=== PATIENT | female | born 2000 | race Asian ===

== ENCOUNTER 2018-05-23 23:00 | Emergency (ER) | payer OTHER, MEDICAID ==
[2018-05-23 23:10] VITALS: BP 124/91
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
[2018-05-24] MEDS ORDERED: IBUPROFEN 600 MG TAB PO ONE (00:06)
== END 2018-05-24 00:22 | disposition home or self-care (01) ==
DX: S43.401A Unspecified sprain of right shoulder joint, initial encounter (principal); S16.1XXA Strain of muscle, fascia and tendon at neck level, initial encounter; V43.52XA Car driver injured in collision with other type car in traffic accident, initial encounter; Y92.410 Unspecified street and highway as the place of occurrence of the external cause; Y99.8 Other external cause status

== ENCOUNTER 2018-10-13 07:06 | Inpatient (IN) | payer MEDICAID ==
[2018-10-13] MEDS ORDERED: NS 1,000 ML IV ONE ×2 (07:15→08:52)
--- NOTE | 2018-10-13 07:19 | EDPHY ---
H & P Time Seen by Provider: 10/13/18 07:11 HPI/ROS: CHIEF COMPLAINT: Ibuprofen overdose HISTORY OF PRESENT ILLNESS: Patient is a 18-year-old female student with history of depression who reports that she overdosed on ibuprofen last night. She began taking ibuprofen around 9:00 p.m. And finished around midnight. She woke up this morning called 911. She had a new bottle of ibuprofen and states that she took about half of them. We are currently counting the pills. She is currently asymptomatic. She states that she did this in an attempt to kill herself. She denies, ingestants. Severity: Moderate Modifying factors: None REVIEW OF SYSTEMS: Constitutional: denies: chills, fever, recent illness, recent injury EENTM: denies: blurred vision, double vision, nose congestion Respiratory: denies: cough, shortness of breath Cardiac: denies: chest pain, irregular heart rate, lightheadedness, palpitations Gastrointestinal/Abdominal: denies: abdominal pain, diarrhea, nausea, vomiting, blood streaked stools Genitourinary: denies: dysuria, frequency, hematuria, pain Musculoskeletal: denies: joint pain, muscle pain Skin: denies: lesions, rash, jaundice, bruising Neurological: denies: headache, numbness, paresthesia, tingling, dizziness, weakness Hematologic/Lymphatic: denies: blood clots, easy bleeding, easy bruising Immunologic/allergic: denies: HIV/AIDS, transplant 10 systems reviewed and negative except as noted EXAM: GENERAL: Well-appearing, well-nourished and in no acute distress. HEAD: Atraumatic, normocephalic. EYES: Pupils equal round and reactive to light, extraocular movements intact, sclera anicteric, conjunctiva are normal. ENT: TMs normal, nares patent, oropharynx clear without exudates. Moist mucous membranes. NECK: Normal range of motion, supple without lymphadenopathy or JVD. LUNGS: Breath sounds clear to auscultation bilaterally and equal. No wheezes rales or rhonchi. HEART: Regular rate and rhythm without murmurs, rubs or gallops. ABDOMEN: Soft, nontender, normoactive bowel sounds. No guarding, no rebound. No masses appreciated. BACK: No CVA tenderness, no spinal tenderness, step-offs or deformities EXTREMITIES: Normal range of motion, no pitting or edema. No clubbing or cyanosis. NEUROLOGICAL: Cranial nerves II through XII grossly intact. Normal speech, normal gait. 5/5 strength, normal movement in all extremities, normal sensation , normal reflexes PSYCH: Normal mood, normal affect. SKIN: Warm, dry, normal turgor, no visible rashes or lesions. Source: Patient, EMS Exam Limitations: No limitations - Medical/Surgical History Hx Asthma: No Hx Chronic Respiratory Disease: No Hx Diabetes: No Hx Cardiac Disease: No Hx Renal Disease: No Hx Cirrhosis: No Hx Alcoholism: No Hx HIV/AIDS: No Hx Splenectomy or Spleen Trauma: No Other PMH: none - Family History Significant Family History: No pertinent family hx - Social History Smoking Status: Never smoked Alcohol Use: Sober Drug Use: None Constitutional: Initial Vital Signs Temperature (C) 36.4 C 10/13/18 07:18 Heart Rate 118 H 10/13/18 07:18 Respiratory Rate 18 10/13/18 07:18 Blood Pressure 102/83 H 10/13/18 07:18 O2 Sat (%) 94 10/13/18 07:18 O2 Delivery Mode Room Air Allergies/Adverse Reactions: amoxicillin Allergy (Verified 05/23/18 23:10) Penicillins Allergy (Verified 05/23/18 23:10) Home Medications: Medication Instructions Recorded NK [No Known Home Meds] 05/23/18 Medical Decision Making - Diagnostics EKG Interpretation: An EKG obtained and was read and documented in trace view. Please see trace view for full reading and report. Sinus rhythm, no interval abnormalities. ED Course/Re-evaluation: 7:50 a.m. I spoke with poison Control case [id number]. We have counted the remaining pills in the bottle and there are 223 missing which would be ingestion of 44,600 mg last night. This is about 620 milligrams/kilogram which is over the 400 milligrams/kilogram toxic dose. The patient is slightly acidotic. She is slightly sleepy but is not showing other symptoms. No abdominal pain or bleeding or vomiting. No renal failure at this point. Will admit for hydration and supportive care. Seizure precautions. Benzos if she has seizures. 8:00 a.[address]. discussed the case Dr. Sarah Dela Cruz who will admit to the ICU. Differential Diagnosis: Partial list of the Differential diagnosis considered include but were not limited to; suicidality, overdose and although unlikely based on the history and physical exam, I also considered head injury, infection, . Critical Care Time: Critical care time spent by me, Dr. Crawley exclusive with this patient was 45 minutes, exclusive of the PA time exclusive of procedures. The organ system that was at risk was cardiovascular and GI and I gave IV fluids, consultation and admission to prevent worsening of the patient's condition - Data Points Laboratory Results: Laboratory Results 10/13/18 07:18 10/13/18 07:18 10/13/18 10/13/18 10/13/18 07:22 07:19 07:18 WBC RBC Hgb Hct MCV MCH MCHC RDW Plt Count MPV Neut % (Auto) Lymph % (Auto) Zapata % (Auto) Eos % (Auto) Baso % (Auto) Nucleat RBC Rel Count Absolute Neuts (auto) Absolute Lymphs (auto) Absolute Monos (auto) Absolute Eos (auto) Absolute Basos (auto) Absolute Nucleated RBC Immature Gran % Immature Gran # PT 14.2 SEC SEC (12.0-15.0) INR 1.08 (0.83-1.16) APTT 27.9 SEC SEC (23.0-38.0) Puncture Site VENOUS Patient Temperature 37.0 DEGREES DEGREES VBG pH 7.28 L (7.31-7.42) VBG HCO3 18 mEQ/L L mEQ/L (22-26) VBG Total CO2 20 mEq/L L mEq/L (21-27) VBG O2 Saturation 79 % H % (65-75) VBG Base Excess -7.7 mEq/L L mEq/L (-2.5-2.5) Mixed VBG pCO2 40 mmHg mmHg (40-44) Mixed VBG pO2 50 mmHG H mmHG (35-40) Sodium Potassium Chloride Carbon Dioxide Anion Gap BUN Creatinine Estimated GFR Glucose Calcium Total Bilirubin Conjugated Bilirubin Unconjugated Bilirubin AST ALT Alkaline Phosphatase Total Protein Albumin TSH Beta HCG, Qual NEGATIVE Salicylates Acetaminophen Ethyl Alcohol 10/13/18 10/13/18 07:18 07:18 WBC 14.50 10^3/uL H 10^3/uL (3.80-9.50) RBC 4.89 10^6/uL 10^6/uL (4.18-5.33) Hgb 15.8 g/dL g/dL (12.6-16.3) Hct 45.2 % % (38.0-47.0) MCV 92.4 fL fL (81.5-99.8) MCH 32.3 pg pg (27.9-34.1) MCHC 35.0 g/dL g/dL (32.4-36.7) RDW 12.1 % % (11.5-15.2) Plt Count 230 10^3/uL 10^3/uL (150-400) MPV 9.1 fL fL (8.7-11.7) Neut % (Auto) 85.2 % H % (39.3-74.2) Lymph % (Auto) 11.1 % L % (15.0-45.0) Zapata % (Auto) 3.1 % L % (4.5-13.0) Eos % (Auto) 0.1 % L % (0.6-7.6) Baso % (Auto) 0.2 % L % (0.3-1.7) Nucleat RBC Rel Count 0.0 % % (0.0-0.2) Absolute Neuts (auto) 12.36 10^3/uL H 10^3/uL (1.70-6.50) Absolute Lymphs (auto) 1.61 10^3/uL 10^3/uL (1.00-3.00) Absolute Monos (auto) 0.45 10^3/uL 10^3/uL (0.30-0.80) Absolute Eos (auto) 0.01 10^3/uL L 10^3/uL (0.03-0.40) Absolute Basos (auto) 0.03 10^3/uL 10^3/uL (0.02-0.10) Absolute Nucleated RBC 0.00 10^3/uL 10^3/uL (0-0.01) Immature Gran % 0.3 % % (0.0-1.1) Immature Gran # 0.04 10^3/uL 10^3/uL (0.00-0.10) PT INR APTT Puncture Site Patient Temperature VBG pH VBG HCO3 VBG Total CO2 VBG O2 Saturation VBG Base Excess Mixed VBG pCO2 Mixed VBG pO2 Sodium 140 mEq/L mEq/L (135-145) Potassium 4.7 mEq/L mEq/L (3.5-5.2) Chloride 104 mEq/L mEq/L (97-110) Carbon Dioxide 18 mEq/l L mEq/l (22-31) Anion Gap 18 mEq/L H mEq/L (6-14) BUN 14 mg/dL mg/dL (7-23) Creatinine 1.0 mg/dL mg/dL (0.6-1.0) Estimated GFR > 60 Glucose 88 mg/dL mg/dL (70-100) Calcium 9.7 mg/dL mg/dL (8.5-10.4) Total Bilirubin 0.8 mg/dL mg/dL (0.1-1.4) Conjugated Bilirubin 0.4 mg/dL mg/dL (0.0-0.5) Unconjugated Bilirubin 0.4 mg/dL mg/dL (0.0-1.1) AST 39 IU/L IU/L (14-46) ALT 64 IU/L H IU/L (9-52) Alkaline Phosphatase 101 IU/L IU/L (38-126) Total Protein 9.6 g/dL H g/dL (6.3-8.2) Albumin 4.9 g/dL g/dL (3.5-5.0) TSH 1.770 uIU/mL uIU/mL (0.465-4.680) Beta HCG, Qual Salicylates < 1.0 mg/dL L mg/dL (2.0-20.0) Acetaminophen < 10 mcg/mL L mcg/mL (10-30) Ethyl Alcohol < 10 mg/dL mg/dL (0-10) Medications Given: Sodium Chloride (Ns) 1,000 mls @ 150 mls/hr IV CONT NORM Stop: 04/11/19 08:14 Last Admin: 10/13/18 10:53 Dose: 1,000 mls Discontinued Medications Sodium Chloride (Ns) 1,000 mls @ 0 mls/hr IV EDNOW ONE; Wide Open PRN Reason: Protocol Stop: 10/13/18 07:16 Last Admin: 10/13/18 07:32 Dose: 1,000 mls Sodium Chloride (Ns) 1,000 mls @ 0 mls/hr IV EDNOW ONE; Wide Open PRN Reason: Protocol Stop: 10/13/18 08:53 Last Admin: 10/13/18 08:53 Dose: 1,000 mls Ondansetron HCl (Zofran) 4 mg IVP EDNOW ONE Stop: 10/13/18 07:34 Last Admin: 10/13/18 07:34 Dose: 4 mg Departure - Departure Disposition: [facility] Clinical Impression: Suicidal ideation Ibuprofen overdose Qualifiers: Encounter type: initial encounter Injury intent: intentional self-harm Qualified Code(s): T39.312A - Poisoning by propionic acid derivatives, intentional self-harm, initial encounter Condition: Fair
[2018-10-13] MEDS ORDERED: ONDANSETRON 4 MG/2 ML VIAL ONE (07:30)
[2018-10-13 07:31] LABS: PLATELET COUNT 230 10^3/uL (150-400)
[2018-10-13] MEDS ORDERED: ONDANSETRON 4 MG/2 ML VIAL IVP ONE (07:33)
[2018-10-13 07:37] LABS: INR 1.08 (0.83-1.16); PROTIME(PATIENT) 14.2 SEC (12.0-15.0)
--- NOTE | 2018-10-13 07:45 | CPEKG ---
Test Reason : OPEN Blood Pressure : / mmHG Vent. Rate : 101 BPM Atrial Rate : 101 BPM P-R Int : 132 ms QRS Dur : 104 ms QT Int : 351 ms P-R-T Axes : 039 094 005 degrees QTc Int : 455 ms Sinus tachycardia Consider right ventricular hypertrophy Confirmed by Mando Crawley ([id number]) on 10/13/2018 7:44:27 AM Referred By: Mando Crawley Confirmed By:Mando Crawley
[2018-10-13] MEDS ORDERED: ACETAMINOPHEN 325 MG TAB PO PRN (08:09)
[2018-10-13] MEDS ORDERED: ONDANSETRON 4 MG/2 ML VIAL IVP PRN (08:09)
[2018-10-13] MEDS ORDERED: ONDANSETRON DISINTEGRATING 4 MG TAB PO PRN (08:09)
[2018-10-13] MEDS: NS 1,000 ML IV SCH ×3 (10:53→23:41)
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
--- NOTE | 2018-10-13 18:17 | PDMN ---
Medical Necessity Medical necessity: [facility] M153 Drug Ingestion or Overdose, A-1 day: 18 yo w/ intentional OD ibuprofen, on IVF and seizure precautions, M1 hold, psych to consult once medically cleared. IP status in ICU for monitoring, tx and risk of harm to self.
[2018-10-14 05:21] LABS: INR 1.24 (0.83-1.16); PROTIME(PATIENT) 15.8 SEC (12.0-15.0)
[2018-10-14] MEDS: NS 1,000 ML IV SCH ×2 (06:30→07:07)
--- NOTE | 2018-10-14 14:42 | ASMTCMCOM ---
CM Note CM Note Notes: Pt is a 18 yo female prespetns after intentional overdose of ibprophen. TLC consult once medically cleared. Plan: Transfer to inpatient psych ([facility]). Date Signed: 10/14/2018 02:41 PM Electronically Signed By:MILES Najera
--- NOTE | 2018-10-14 16:14 | HOSPPROG ---
Hospitalist Progress Note Assessment/Plan: Ibuprofen overdose (Acute) - Intentional overdose on evening of 10/12 - Per ED, 223 pills missing from bottle, about 620 mg/kg which is over the 400 mg/kg toxic dose - Patient slightly acidotic on admission, VBG ph 7.28, Bicarb 18 - Spoke with Poison control (case [id number]) this afternoon, no further recommendations - Repeat BMP this afternoon shows improvement in Bicarb to 19 AG Metabolic Acidosis - AG 18, Bicarb 18 on admission - In setting of Ibuprofen overdose - S/p mIVF overnight - Repeat BMP as above Suicidal Ideation - Reports no formal hx of depression, has not been on antidepressant in the past - Currently on M1 Hold - Will consult Psychiatry this afternoon now that patient is medically cleared FEN: IVF, Regular Code: FULL DVT PPx: Low risk, SCDs Dispo: Currently on M1 Hold, TLC has been consulted, patient is medically cleared Subjective: Patient reports no complaints this afternoon Objective: Vital Signs Temp Pulse Resp BP Pulse Ox 36.8 C 93 16 110/66 96 10/14/18 07:25 10/14/18 13:36 10/14/18 13:36 10/14/18 13:36 10/14/18 13:36 Laboratory Results 10/14/18 05:00 10/14/18 15:25 10/13/18 10/14/18 10/15/18 05:59 05:59 05:59 Intake Total 4107 1735 Output Total 1600 Balance 2507 1735 PT 15.8 SEC (12.0-15.0) H 10/14/18 05:00 INR 1.24 (0.83-1.16) H 10/14/18 05:00 - Physical Exam Constitutional: no apparent distress Eyes: PERRL Ears, Nose, Mouth, Throat: moist mucous membranes Cardiovascular: regular rate and rhythym Respiratory: no respiratory distress Gastrointestinal: soft, non-tender abdomen Skin: warm Musculoskeletal: full muscle strength Neurologic: AAOx3 Psychiatric: interacting appropriately ICD10 Worksheet Patient Problems: Problems Problem Status Onset Ibuprofen overdose Acute Suicidal ideation Acute
[2018-10-14 18:20] VITALS: BP 121/70
--- NOTE | 2018-10-14 20:02 | ASMTTLCEVL ---
TLC Evaluation - Basic Information Evaluation Start Date and 10/14/2018 06:30 PM Time Hospital Status Answers: M1 Hold 72-hr M1 Hold Start Date 10/13/2018 06:31 AM and Time Patient statement Notes: "I attempted to kill myself - having lots of negative vibes - feeling overwhelmed - thought my parents would be better off not having to worry about me anymore." Narrative Notes: This 18 y/o -Citizen Of [place] female, a sophomore in college was brought to the ED by [place] Police and EMS. Upon arrival to her home pt reported to officer that she tried to kill herself by taking a whole bottle of Ibuprofen. She was vomiting and could not stand. She was evaluated in the Ed and then admitted to the ICU due to her overdose. She has now been medically cleared in the ICU and ready for psychiatric evaluation. Pt reports a longstanding history of depression and anxiety - since elementary school but has had no treatment as her family does not "believe in mental illness" so she kept her feelings to herself. She recently saw a counselor at [facility] as she was feeling depressed and overwhelmed. She mainly reports struggling academically for the past year - issues with her brother a college freshman with whom she lives off campus and joining and then leaving a "catholic cult" called "[employer]" which she found to be emotionally abusive rather than supportive. Pt is alert and cooperative. She currently denies suicidal ideation, urges or behaviors. She does feel depressed and regrets making the suicide attempt. She denies any previous parasuicidal/ homicidal ideation, urges or behaviors. She denies any history of A/V hallucinations or psychotic symptoms. Diagnosis History Notes: Pt has never been in treatment but likely suffers from a Depressive Disorder and Generalized Anxiey. Prior suicide attempts Notes: Pt reports 2 prior attempts - once in Middle School and once in via drowning. She never told anyone. Prior hospitalizations Notes: None reported. Treatment Responses Notes: Has seen a counselor at school a few times. History of violence Notes: None reported Medications (name, dosage, route, freq uency) Notes: None Allergies/Reaction Notes: Penicillin Sleep Notes: Has been sleeping a lot Appetite Notes: Increased appetite Medical/Surgical history Notes: Denies any medical condition or past surgery Substance use history (frequency, intensity, his tory, duration) Notes: Pt denies all substance use. Family composition Notes: Parents and 2 younger sibs live in [place], [place] pt and brother live in [place] to attend . Need for family Answers: Yes participation in patient's care Family psychiatric/substance abuse history Notes: Pt denies Developmental history Notes: Pt moved to [place] at age 8 from [place]. She did very well academically and socially - active in many extra curriculars. 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 [employer] Notes: NA Legal Notes: None reported Mandaeism/Spiritual Notes: No beliefs that would interfere with treatment Leisure Notes: Volleyball, hiking, painting Collateral Notes: Pt's chart Patient's strengths Answers: Artistic/Creative/Musical (Please select at least TWO strengths): Athletic Good Friend to Others Honest Intelligent Motivated for Treatment Responsible/Dependable Supportive Family Willingness TLC Evaluation - Mental Status Exam Appearance: Answers: Appropriate Clean Eye Contact: Answers: Intermittent Mood: Answers: Depressed Affect: Answers: Anxious Congruent w/ Mood Sad Behavior: Answers: Appropriate Cooperative Crying Speech: Answers: Relevant Logical Clear Coherent Thought Process: Answers: Organized Oriented Alert Insight: Answers: Fair Judgement: Answers: Poor Depression Answers: Crying Spells Signs/Symptoms: Difficulty Concentrating Sad Mood Anxiety Signs/Symptoms Answers: Generalized Anxiety Hallucinations: Answers: None Pt reported to have Answers: Yes suicidal/self-injuring ideation/behavior? Pt reported to be making Answers: No suicidal/self-injuring threats? Pt reported to have Answers: No aggression/assault ideation/behavior? Pt reported to be making Answers: No aggression/assault threats? Pt exhibits inability to Answers: No care for self/grave disability? Ideation has Answers: No delusional/hallucinatory content? History of Answers: Yes suicidal/self-injuring ideation, behavior, or threats? History of Answers: No aggressive/assaultive ideation, behavior, or threats? History of serious Answers: No physical harm to self/others while in treatment setting? TLC Evaluation - Suicide/Homicide Risk Suicide Risk Factors: Answers: Impulsivity Major Depression Homicide/violence risk Answers: None factors: Current Suicidal Answers: No Ideation? Current Suicidal Ideation Answers: Yes in the Past 48 Hours? Current Suicidal Answers: Yes Ideation, Worst Ever? Suicide Internal Answers: Absence of Psychosis Protective Factors: Frustration Tolerance Suicide External Answers: Social Support Protective Factors: Ranking of patient's Answers: Low suicidal risk: Ranking of patient's Answers: Low homicidal risk: TLC Evaluation - Wrap-up BDI Total Score: 36 BDI Question #2 Score: 0 BDI Question #9 Score: 2 BSS Total Score: 11 AXIS I Diagnosis (include DSM-V and ICD-10 codes), must also be entered in [employer], which is the source of truth. Notes: 296.32 (F33.1) Major Depressive Disorder, Recurrent, Moderate 300.02 (F41.1) Generalized Anxiety Disorder Evaluation End Date and 10/14/2018 08:00 PM Time (HH:TRISHA): Date Signed: 10/14/2018 08:01 PM Electronically Signed By:Viky Pavon
--- NOTE | 2018-10-14 20:24 | ASMTTCLDSP ---
TLC Discharge Disposition Disposition: Answers: Admit Disposition Notes: Notes: In consultation with ICU MD and sanitation worker hosing machinery psychiatrist, Daryl Rowe both concurred that pt appears to meet the 27-65 criteria requiring in-pt psychiatric hospitalization as pt appears to be a danger to self. Pt was read her Patient Rights and signed the document. For inpatient Daryl Rowe MD admission, the following psychiatrist agreed to accept patient for admission to [facility]): Type of Hold: Answers: M1/72-hour Hold Hold initiated by: Answers: Police Date Signed: 10/14/2018 08:24 PM Electronically Signed By:Viky Pavon
--- NOTE | 2018-10-15 11:22 | ASDISCHSUM ---
Discharge Information Plan Status:Psych Placement/Petitioned Medically Cleared to Leave: Discharge Date:10/14/2018 09:35 PM CM D/C Disposition: ADT D/C Disposition:[facility] Projected Discharge Date:10/14/2018 12:00 AM Transportation at D/C: Discharge Delay Reason: Follow-Up Date:10/14/2018 12:00 AM Discharge Slot: Final Diagnosis: Placement Information Patient Contact Information Contact Name:RODRIGUEZ Relationship:Father Address:[address] Work Phone: City:[place] Alternate Phone: [facility]/Zip Code:[place] [address] Email: Financial Information Financial Class:Medicaid Primary Plan Desc:MEDICA[employer] Primary Plan Number:[id number] Secondary Plan Desc: Secondary Plan Number: Assessment Information [facility] CM Progress Note CM Note CM Note Notes: Pt is a 18 yo female prespetns after intentional overdose of ibprophen. TLC consult once medically cleared. Plan: Transfer [facility] inpatient [facility]. Date Signed: 10/14/2018 02:41 PM Electronically Signed By:MILES Najera TLC Evaluation TLC Evaluation - Basic Information Evaluation Start Date and 10/14/2018 06:30 PM Time Hospital Status Answers: M1 Hold 72-hr M1 Hold Start Date 10/13/2018 06:31 AM and Time Patient statement Notes: "I attempted to kill myself - having lots of negative vibes - feeling overwhelmed - thought my parents would be better off not having to worry about me anymore." Narrative Notes: This 18 y/o -[place] female, a sophomore in college was brought to the ED by [place] Police and EMS. Upon arrival to her home pt reported to officer that she tried to kill herself by taking a whole bottle of Ibuprofen. She was vomiting and could not stand. She was evaluated in the Ed and then admitted to the ICU due to her overdose. She has now been medically cleared in the ICU and ready for psychiatric evaluation. Pt reports a longstanding history of depression and anxiety - since elementary school but has had no treatment as her family does not "believe in mental illness" so she kept her feelings to herself. She recently saw a counselor at [facility] as she was feeling depressed and overwhelmed. She mainly reports struggling academically for the past year - issues with her brother a college freshman with whom she lives off campus and joining and then leaving a "druze cult" called "[employer]" which she found to be emotionally abusive rather than supportive. Pt is alert and cooperative. She currently denies suicidal ideation, urges or behaviors. She does feel depressed and regrets making the suicide attempt. She denies any previous parasuicidal/ homicidal ideation, urges or behaviors. She denies any history of A/V hallucinations or psychotic symptoms. Diagnosis History Notes: Pt has never been in treatment but likely suffers from a Depressive Disorder and Generalized Anxiey. Prior suicide attempts Notes: Pt reports 2 prior attempts - once in Middle School and once in via drowning. She never told anyone. Prior hospitalizations Notes: None reported. Treatment Responses Notes: Has seen a counselor at school a few times. History of violence Notes: None reported Medications (name, dosage, route, freq uency) Notes: None Allergies/Reaction Notes: Penicillin Sleep Notes: Has been sleeping a lot Appetite Notes: Increased appetite Medical/Surgical history Notes: Denies any medical condition or past surgery Substance use history (frequency, intensity, his tory, duration) Notes: Pt denies all substance use. Family composition Notes: Parents and 2 younger sibs live in [place], [place] pt and brother live in [place] to attend . Need for family Answers: Yes participation in patient's care Family psychiatric/substance abuse history Notes: Pt denies Developmental history Notes: Pt moved to [place] at age 8 from [place]. She did very well academically and socially - active in many extra curriculars. 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 [employer] Notes: NA Legal Notes: None reported Anabaptist/Spiritual Notes: No beliefs that would interfere with treatment Leisure Notes: Volleyball, hiking, painting Collateral Notes: Pt's chart Patient's strengths Answers: Artistic/Creative/Musical (Please select at least TWO strengths): Athletic Good Friend to Others Honest Intelligent Motivated for Treatment Responsible/Dependable Supportive Family Willingness [facility] Evaluation - Mental Status Exam Appearance: Answers: Appropriate Clean Eye Contact: Answers: Intermittent Mood: Answers: Depressed Affect: Answers: Anxious Congruent w/ Mood Sad Behavior: Answers: Appropriate Cooperative Crying Speech: Answers: Relevant Logical Clear Coherent Thought Process: Answers: Organized Oriented Alert Insight: Answers: Fair Judgement: Answers: Poor Depression Answers: Crying Spells Signs/Symptoms: Difficulty Concentrating Sad Mood Anxiety Signs/Symptoms Answers: Generalized Anxiety Hallucinations: Answers: None Pt reported to have Answers: Yes suicidal/self-injuring ideation/behavior? Pt reported to be making Answers: No suicidal/self-injuring threats? Pt reported to have Answers: No aggression/assault ideation/behavior? Pt reported to be making Answers: No aggression/assault threats? Pt exhibits inability to Answers: No care for self/grave disability? Ideation has Answers: No delusional/hallucinatory content? History of Answers: Yes suicidal/self-injuring ideation, behavior, or threats? History of Answers: No aggressive/assaultive ideation, behavior, or threats? History of serious Answers: No physical harm to self/others while in treatment setting? [facility] Evaluation - Suicide/Homicide Risk Suicide Risk Factors: Answers: Impulsivity Major Depression Homicide/violence risk Answers: None factors: Current Suicidal Answers: No Ideation? Current Suicidal Ideation Answers: Yes in the Past 48 Hours? Current Suicidal Answers: Yes Ideation, Worst Ever? Suicide Internal Answers: Absence of Psychosis Protective Factors: Frustration Tolerance Suicide External Answers: Social Support Protective Factors: Ranking of patient's Answers: Low suicidal risk: Ranking of patient's Answers: Low homicidal risk: TLC Evaluation - Wrap-up BDI Total Score: 36 BDI Question #2 Score: 0 BDI Question #9 Score: 2 BSS Total Score: 11 AXIS I Diagnosis (include DSM-V and ICD-10 codes), must also be entered in [employer], which is the source of truth. Notes: 296.32 (F33.1) Major Depressive Disorder, Recurrent, Moderate 300.02 (F41.1) Generalized Anxiety Disorder Evaluation End Date and 10/14/2018 08:00 PM Time (:MM): Date Signed: 10/14/2018 08:01 PM Electronically Signed By:Viky Pavon TLC Discharge Disposition TLC Discharge Disposition Disposition: Answers: Admit Disposition Notes: Notes: In consultation with ICU MD and information clerk cashier psychiatrist, Daryl Rowe both concurred that pt appears to meet the 27-65 criteria requiring in-pt psychiatric hospitalization as pt appears to be a danger to self. Pt was read her Patient Rights and signed the document. For inpatient Daryl Rowe MD admission, the following psychiatrist agreed to accept patient for admission to [facility] ([facility]): Type of Hold: Answers: M1/72-hour Hold Hold initiated by: Answers: Police Date Signed: 10/14/2018 08:24 PM Electronically Signed By:Viky Pavon Intervention Information
--- NOTE | 2018-10-15 11:23 | ASMTDCNOTE ---
Case Management Discharge Discharge Order Complete? Answers: Yes Transportation Arranged Answers: [facility] Case Management Transport Answers: Yes Notes: Completed PCS, provided Form Complete to toy painter Faxed Final Orders Answers: Yes Agency/Facility Transfer Answers: Yes Report Printed & Faxed to Receiving Agency Discharge Comments Notes: Pt discharged to inpatient behavioral health. Date Signed: 10/15/2018 11:22 AM Electronically Signed By:MILES Najera
--- NOTE | 2018-10-15 16:48 | PDDCSUM ---
Discharge Summary Discharge Summary: Date of Admission: 10/13/2018 Date of Discharge: 10/14/2018 Consults: TLC Followup: IP Psychiatry Hospital Course Problem List: Ibuprofen overdose (Acute) - Intentional overdose on evening of 10/12 - Per ED, 223 pills missing from bottle, about 620 mg/kg which is over the 400 mg/kg toxic dose - Patient slightly acidotic on admission, VBG ph 7.28, Bicarb 18 - Spoke with Poison control (case [id number]) on 10/14, no further recommendations - Repeat BMP prior to discharge shows improvement in Bicarb to 19 AG Metabolic Acidosis - AG 18, Bicarb 18 on admission - In setting of Ibuprofen overdose - S/p mIVF overnight - Repeat BMP as above Suicidal Ideation - Reports no formal hx of depression, has not been on antidepressant in the past - Currently on M1 Hold - Transferred to IP Psych Time spent on discharge was >35 minutes with >50% of time spent on patient counseling and education
== END 2018-10-14 21:35 | DRG 812 ==
LOC: EDUNIT# → EEVIPCON 07:59 → F2N 09:45 → OBSVTOIN 17:09
PROVIDERS: ADMIT Internal Medicine; ATTEND Internal Medicine
DX: T39.312A Poisoning by propionic acid derivatives, intentional self-harm, initial encounter (principal); E87.2 Acidosis; R45.851 Suicidal ideations; Z23 Encounter for immunization
CPT/HCPCS: 80305; 96374; G0008; G0480; J2405

== ENCOUNTER 2018-10-14 22:00 | Inpatient (IN) | payer MEDICAID ==
[2018-10-14] MEDS ORDERED: OLANZapine DISINTEGR 10 MG TAB PO PRN (22:44)
[2018-10-14] MEDS ORDERED: MAGNESIUM HYDROXIDE 30 ML UDCUP PO PRN (22:44)
[2018-10-14] MEDS ORDERED: LORazepam 0.5 MG TAB PO PRN (22:44)
[2018-10-14] MEDS ORDERED: MAG HYDROX/AL HYDROX/SIMETH 30 ML UDCUP PO PRN (22:44)
[2018-10-14] MEDS ORDERED: ACETAMINOPHEN 325 MG TAB PO PRN (22:44)
[2018-10-14] MEDS ORDERED: NICOTINE POLACRILEX 2 MG GUM B PRN (22:44)
--- NOTE | 2018-10-15 08:00 | ASMTBHMTP ---
Master Treatment Plan Master Treatment Plan Answers: Depressed Mood with for: Suicidal Ideation Date: 10/14/2018 Diagnosis on Admission: Major Depressive Disorder, Recurrent, Moderate Expected length of stay: 3-5 days Reason for admission: Notes: Matt is a 18 yoa, a sophomore in college (at [employer]) was brought to the ED by [place] and EMS. Upon arrival to her home pt reported to officer that she tried to kill herself by taking a whole bottle of Ibuprofen. She recently saw a counselor at [facility] as he was feeling depressed and overwhelmed. She reports struggling academically for the past year; additionally, she reports leaving a "yazidi cult," called the "[employer]," which was emotionally abusive rather than supportive. Patient's stated presenting problems: Notes: self-harming & depression Patient's goals for treatment: Notes: to use my coping skills Patient's strengths: Notes: none Identify supports outside of hospital: Notes: family and friends, school Discharge criteria: Notes: Suicidal Ideation will resolve and patient will have a plan to safely manage recurrent suicidal ideation. Initial disposition plan/considerations: Notes: Return home with my parents. Master Treatment Plan Required Signatures Psychiatrist signature: Answers: Psychiatrist: RN on-shift signature: Answers: RN: Patient signature: Answers: Patient: Date Signed: 10/15/2018 07:59 AM Electronically Signed By:Darell New
[2018-10-15] MEDS: SERTRALINE HCL 50 MG TAB PO SCH (09:40)
--- NOTE | 2018-10-15 13:12 | BAPA ---
[f rep st] ADMISSION PSYCHIATRIC ASSESSMENT DATE OF SERVICE: 10/15/2018 CHIEF COMPLAINT: "Tried to kill myself Rivera evening." HISTORY OF PRESENT ILLNESS: From the ED note, dated 10/13/2018, patient with a history of depression reported overdose of ibuprofen last night, 10/12/2018. Patient reported she began taking ibuprofen around 9 p.m. and finished around midnight. The patient reported she woke up the morning of 10/13/2018, and called 911. The patient reported she had a new bottle of ibuprofen and reported taking half of the bottle. At time of presenting to the emergency department, the patient was asymptomatic. The patient reported she did ingest the ibuprofen in an attempt to kill herself. From the [facility]LC evaluation, dated 10/14/2018, patient was placed on a 72-hour M1 hold with start date and time of 10/13/2018 at 6:30 a.m. Patient reported to the [facility] air traffic control supervisor, "I attempted to kill myself. Having lots of negative vibes, feeling overwhelmed. I thought my parents would be better off not having to worry about me anymore." The patient was admitted involuntarily on an M1 hold due to being a danger to herself and is hospitalized for safety, crisis stabilization and medication evaluation. The patient reports reason for overdose is no longer wanting to live. The patient reports history of depression since middle school. The patient reports increased stressors, including arguing with her brother and reports arguing with her brother Rivera night prior to her overdose and suicide attempt. The patient reports additional stressor including recently finding out she was part of a advent cult and is also feeling overwhelmed with school and a full-time job. The patient reports she is no longer a part of the advent cult, and she has left the advent cult. The patient reports current depression symptoms as depressed mood nearly every day, all day; poor appetite. The patient reports hypersomnia and, at times, insomnia. The patient reports fatigue and lack of energy, feelings of worthlessness and recent suicidal ideation with suicide attempt. The patient reports anxiety symptoms also accompany depression including, at times, finding it difficult to control her worry, feels restless and keyed up at times and also sleep disturbance. The patient reports no history of abuse. The patient denies other psychiatric symptoms, including symptoms of phillip, ADHD, OCD, PTSD, psychosis, and any other symptom of psychiatric disorder. The patient describes psychiatric symptoms are impacting managing her day-to-day life, described as attending to household responsibilities without difficulty. The patient reports she is currently working a full-time job without difficulty. The patient reports she is beginning to reconnect with friends now that she is no longer involved with the advent cult. The patient reports family relationships are going well, except the relationship with her brother, whom she resides with. With regard to school, patient reports there is improvement needed and reports she has refocused on her school work and is making improvements. Patient reports hobbies as playing volleyball and playing guitar. The patient denies current suicidal ideation and reports this suicide attempt was a wake-up call for her and now she realizes the amount of support she has with family and friends. The patient reports protective factors or reasons to live as family, friends and her future. The patient denies current homicidal ideation and denies current self-injurious ideation. The patient reports she recently started seeing a therapist at , and started seeing this therapist this semester. PAST PSYCHIATRIC HISTORY: Patient reports no past history of psychotropic medication trials. No past history of inpatient psychiatric hospitalizations. The patient denies any history of withdrawal from drugs or alcohol. Reports no past suicide attempts. The patient reports no past history of self-injurious behavior. ALLERGIES: 1. Amoxicillin. 2. Penicillins. CURRENT MEDICATIONS: 1. Tylenol 650 mg p.o. q.4 hours p.r.n. 2. Maalox syrup 30 mL p.o. q.6 hours p.r.n. 3. Milk of magnesia 30 mL p.o. daily p.r.n. 4. Zoloft 50 mg p.o. daily. PAST MEDICAL HISTORY: The patient reports she has no reason to believe she could be . Urine test at time of admission was negative. The patient reports no history of major illnesses or major hospitalizations. SOCIAL HISTORY: The patient reports she was born in [place], [place], and then moved to [place], [place]. The patient reports she currently lives in [place], [place], and attends [employer]. The patient reports meeting all her developmental milestones. Reports no history of learning delays or difficulties. Patient describes her sexual orientation as heterosexual. Reports she is currently not sexually active. The patient reports no history of marriage, no children. The patient reports she currently works full-time at a [employer]. 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 The patient reports no history of duty and reports no current congregational or spiritual practice. The patient reports no history of or current legal charges. SUBSTANCE USE HISTORY: The patient reports she uses no substances and does not drink alcohol or use nicotine. FAMILY PSYCHIATRIC HISTORY: The patient reports no family history of mental illness, no family history of suicide and no family history of substance use. ADMISSION LABS/STUDIES: 1. CBC within normal limits, except red blood cells were low at 3.82, hemoglobin was low at 12.0, hematocrit was low at 35.9, neutrophils were elevated at 85.2, lymphocytes were low at 11.1, monocytes low at 3.1, eosinophils low at 0.1, basophils low at 0.2, absolute neutrophils were elevated at 12.36, absolute eosinophils were low at 0.01. 2. Coagulation. PT was elevated at 15.8. INR was elevated at 1.24. APTT was normal at 27.9. 3. Blood gas. VBG pH was low at 7.30. VBG HCO3 was low at 17. VBG total CO2 was low at 18. VBG O2 saturation was elevated at 94. VBG base excess was low at -8.4. Mixed VBG pCO2 was low at 36. Mixed VBG pO2 was elevated at 76. 4. BMP within normal limits except chloride was elevated at 114. Carbon dioxide was low at 19. 5. Calcium was low at 8.1. 6. Liver function within normal limits, except albumin was low at 3.4. 7. TSH was within normal limits at 1.770. 8. Beta HCG qualitative test was negative. 9. Toxicology screen was negative for all substances screened and negative for ethyl alcohol. MENTAL STATUS EXAM: The patient is a well-nourished female looking stated chronological age. Attire is appropriate. Dress is hospital garb. Grooming status is appropriate. Ambulation is independent. Gait is normal and coordinated. Posture is normal and relaxed. Eye contact is appropriate and adequate. Motor activity is appropriate with purposeful, organized, coordinated movements with no involuntary movements noted. Attitude is cooperative and friendly. The patient appears attentive and relates well to this interviewer. Language production is spontaneous. Rate, rhythm and volume are normal. Articulation is clear. The patient reports mood as "depressed," with constricted, flat and congruent affect. The patient's thought process is linear and logical with no loose associations, tangential thought, thought blocking, concrete thinking, or any other signs of formal thought disorder. The patient does not report suicidal or homicidal thoughts, ideas or plans. The patient denies auditory or visual hallucinations. The patient denies delusions. Patient does not appear to be attending to internal stimuli. The patient is oriented to person, place, time and situation. The patient's attention and concentration are fair. The patient's insight and judgment are poor. There is no evidence of gross cognitive dysfunction at any point during the interview and no evidence of apparent dysfunction in recent or remote memory noted. The patient does not report undesirable side effects from the current medications. DIAGNOSIS: Based on the patient's history and current presentation, the patient 's diagnosis is major depressive disorder, severe, with anxious distress. 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 The patient requires continued inpatient care because of recent suicidal ideation with attempt by overdose. The patient presents with problems of increased stressors that have been steadily increasing over the past several weeks. Patient's life has been affected by these problems, including leading up to suicidal ideation and suicide attempt. The exacerbation of symptoms preceded by increased stressors including discord with patient's brother, increased stressors with working full-time along with being a full-time student. The patient is a high suicide safety risk due to recent suicidal ideation with attempt. Protective factors while hospitalized include ongoing safety checks, active involvement in treatment and support from our treatment team. The patient could benefit from inpatient hospitalization for safety, crisis stabilization and medication evaluation. PLAN: 1. Psychotropic medications: After reviewing options, risks and benefits with the patient, the patient agrees to continue current medications listed above. No other medication changes at this time as more time is needed to determine ongoing tolerability and efficacy. Plan is to continue to observe patient for response and side effects from medications, and ongoing monitoring and evaluation. 2. Review with patient informed consent and recommendations for psychotropic medication treatment listed below 3. Labs: lipid panel; A1c 4. Therapy: continue milieu and group therapy 5. Further investigation including gathering information from patients relatives and review of past case records to inform treatment plan. 6. Safety/Wellness plan and follow-up outpatient appointments to be established prior to discharge. Next steps are for patient to meet with pediatric acute care unit nurse to plan a safe discharge plan and establish outpatient services for ongoing treatment. 7. Confer with inpatient treatment team regarding treatment plan. 8. Address psychosocial stressors by meeting with career representative to establish discharge plan including referrals for outpatient services. 9. Legal status: M1 10. Consider discharge on Monday if patient is in stable condition, safe, and has a safe discharge plan. ESTIMATED LENGTH OF STAY: 1-3 days PSYCHOTROPIC MEDICATION TREATMENT INFORMED CONSENT and RECOMMENDATIONS: Review nature of condition, diagnosis, and prognosis. Review nature and purpose of psychotropic medication treatment. Review type of psychotropic medications being ordered. Review risk and benefits of psychotropic medication treatment. Review probable length of time will need to take medications. Review risk and benefits of not undergoing psychotropic medication treatment. Review alternative treatments to psychotropic medications. Review psychotropic medications contraindications, drug-drug interactions, side effects, and importance of reporting any side effects to a psychiatric provider or nurse during inpatient hospitalization, and upon discharge to patients psychiatric outpatient provider, primary care provider, or other health family day care worker. Review importance of asking a nurse, psychiatric provider, or primary care provider any questions or problems concerning the psychotropic medications. Verify patient understands the information that has been provided, and understands, accepts, and agrees to psychotropic medications. Review patients safety plan and importance of patient to communicate to staff while hospitalized if patient is ever a danger to self/others, or unable to care for self, and upon discharge, the importance for patient to contact [facility] or [facility], or go to the nearest emergency room, if patient is ever a danger to self/others, or unable to care for self. Recommend that upon discharge patient establish medication management treatment with a psychiatric provider, establishes routine therapy appointments, and follow-up with primary care provider. Verify patient understands and agrees to these recommendations. /[id number]/MODL MTDD
--- NOTE | 2018-10-15 15:05 | PDMN ---
Medical Necessity Medical necessity: [facility] [id number] Major Depressive Disorder, Adult: Inpatient Care, 3 days: 18 yo on M1 hold for suicide attempt. Dx Major Depressive D/O, severe, w/ anxious distress. Admit to IP BEH unit.
[2018-10-16 06:54] VITALS: BP 113/67
[2018-10-16] MEDS: SERTRALINE HCL 50 MG TAB PO SCH (08:53)
--- NOTE | 2018-10-16 12:01 | BDS ---
[f rep st] BEHAVIORAL HEALTH DISCHARGE SUMMARY REASON FOR ADMISSION: From the ED note dated 10/13/2018, patient presented to the emergency department after overdose on ibuprofen. Patient reported she overdosed in an attempt to kill herself. Patient was admitted involuntarily and on an M1 hold due to being a danger to herself. Patient was admitted for safety, crisis stabilization, and medication management. ADMITTING DIAGNOSIS: Major depressive disorder, severe, with anxious distress. ADMISSION PHYSICAL EXAM: Patient was seen for history and physical on 2018, for medical clearance for inpatient psychiatric hospitalization and treatment. Patient was medically cleared for inpatient psychiatric hospitalization treatment. For further details, please refer to exam report history and physical dated 10/13/2018. ADMISSION LABS: 1. CBC within normal limits, except red blood cells were low at 3.82, hemoglobin was low at 12.0, hematocrit was low at 35.9, neutrophils were elevated at 85.2, lymphocytes were low at 11.1, monocytes were low at 3.1, eosinophils were low at 0.1, basophils were low at 0.2, absolute neutrophils were elevated at 12.36, absolute eosinophils were low at 0.01. 2. Coagulation: PT was elevated at 15.8. INR was elevated at 1.24. APTT was within normal limits at 27.9. 3. Blood gas within normal limits, except VBG pH was low at 7.30, HC03 was low at 17, CO2 was low at 18. O2, saturation was elevated at 94, base excess was low at -8.4, pCO2 was low at 36, and pO2 was elevated at 76. 4. BMP within normal limits, except chloride was elevated at 114, carbon dioxide was low at 19. 5. Calcium was low at 8.1. 6. Liver function within normal limits, except albumin was low at 3.4. 7. Lipid panel within normal limits, except cholesterol was low at 124, HDL cholesterol was low at 33. 8. Beta hCG qualitative test was negative. 9. TSH within normal limits at 1.770. 10. Toxicology screen was negative for all substances screen and negative for ethyl alcohol. MAJOR PROCEDURES OR TESTS: Patient had no major procedures or tests while hospitalized at [address] Patient did have an EKG completed on 10/13/[address] [facility] prior to admission with QTc interval was 455 msec, noted sinus tachycardia, and consider right ventricular hypertrophy. HOSPITAL COURSE: The most prominent symptoms and behaviors while the patient was here were reports of severe depression. Treatment modalities utilized were milieu and group therapy. Zoloft 50 mg p.o. daily was started to target mood symptoms, was tolerated with no report of side effects. Patient has improved considerably with no signs of psychiatric symptoms and no psychiatric symptoms expressed. Patient reports she has improved since admission, states to be in stable condition, feels safe to discharge, and she contracts for safety. Patients response to treatment was good. There were no adverse or unexpected results of treatment. The patient was safe throughout stay, active in treatment , engaged in groups, and was appropriate with staff. Patient met with treatment team prior to discharge to assess readiness to discharge and review discharge plan. The treatment team consensus is the patient in stable condition , has a safe discharge plan, and is ready to discharge today. CONDITION ON DISCHARGE: Patient is in stable condition and is no longer a danger to self or others, and is not gravely disabled due to mental illness. Patient is no longer in need of inpatient level of care, and can be safely and effectively treated within the community. The patients level of risk at time of discharge is low. MSE: The patient is casually dressed and with good hygiene , and looks stated age. Patient is sitting, posture is upright, and position is relaxed. Patient appears awake, alert, and responds appropriately and reasonably during interview. Patient is engaged, relates well to interviewer, and emotional facial expression is appropriate to situation and changes appropriately with topic. Patient is cooperative, makes comfortable eye contact , and movements are voluntary, deliberate, coordinated, and smooth and even with no inappropriate movements. Patient makes laryngeal sounds effortlessly and shares conversation appropriately; pace of conversation is appropriate, and stream of talking is fluent; articulation is clear and understandable; word choice is effortless and appropriate for education level; completes sentences, occasionally pausing to think; rate and volume are appropriate for interview and setting. Patient reports mood as euthymic. Patients affect is stable with full variable range, congruent with mood, and appropriate to speech and circumstances. Patient has linear and logical thinking, with no loose associations, tangential thought, thought blocking, concrete thinking, or any other signs of formal thought disorder. Patient denies suicidal and homicidal ideation, and denies hallucinations and delusions. Patient appears to be a reliable historian with sound judgement and good insight into current condition. Patient has no apparent dysfunction in recent or remote memory noted , and no evidence of gross cognitive dysfunction noted at any point during the interview. DISCHARGE DIAGNOSIS: Major depressive disorder, severe, with anxious distress. CURRENT MEDICATIONS: After reviewing options risks and benefits with the patient, patient agrees to continue Zoloft 50 mg p.o. daily. Patient requested a prescription for this medication at time of discharge. Prescription for 30 days is provided. The prescription is reviewed with the patient at time of discharge to ensure accuracy and patient understanding. DISPOSITION: Patient left hospital independently and voluntarily with her parents and plans to return to her parent's home in [place], [place] and stay a few days with her parents before returning to classes at in [place], [place]. FOLLOWUP: telehealth coordinator reports the appropriate outpatient follow-up services have been established and outpatient appointments have been scheduled. The patient received written instructions with times and dates of outpatient follow-up appointments. The following follow-up recommendations were provided to the patient at discharge: Continue psychotropic medications as prescribed and attend appointments as scheduled. Report any side effects to a psychiatric outpatient provider, a primary care provider, or other health technical healthcare consultant. Address any questions or problems concerning the psychotropic medications with a psychiatric outpatient provider, a primary care provider, or other health technical healthcare consultant. Contact [facility] or [facility], or go to the nearest emergency room, if you are ever a danger to yourself/others, or unable to care for yourself. As soon as possible, establish a routine medication management treatment with a psychiatric provider, establish routine therapy appointments, and follow-up with a primary care provider. LEGAL COURSE: Patient was admitted involuntarily on an M1 hold for inpatient psychiatric hospitalization. Patient discharged today independently and voluntarily. ATTITUDE AT TIME OF DISCHARGE: The patients attitude was positive at time of discharge, and patient reports looking forward to discharging today. The patient reports she feels safe to discharge, is no longer a danger to herself or others, is in stable condition, and contracts for safety. Patient states she will continue medications as prescribed, and establish medication management treatment with an outpatient provider after discharge. Patient reports she understands the information that has been provided to her, and she understands, accepts, and agrees to psychotropic medications. Patient describes internal protective factors as the coping skills she has learned while hospitalized here, and she plans to continue to practice these coping skills after discharge. LABS AND STUDIES: There were no pending labs or studies at time discharge. ADVANCE DIRECTIVES: There were no advance directives on file, and patient was full code during this hospitalization. The following psychotropic medication treatment informed consent and recommendations were provided to the patient at time of discharge. Patient reports she understands, accepts, and agrees to the information that has been provided. PSYCHOTROPIC MEDICATION TREATMENT INFORMED CONSENT and RECOMMENDATIONS: Review nature of condition, diagnosis, and prognosis. Review nature and purpose of psychotropic medication treatment. Review type of psychotropic medications being prescribed. Review risk and benefits of psychotropic medication treatment. Review probable length of time will need to take medications. Review risk and benefits of not undergoing psychotropic medication treatment. Review alternative treatments to psychotropic medications. Review psychotropic medications contraindications, side effects, and importance of reporting any side effects to a psychiatric provider, primary care provider, or other health technical healthcare consultant. Review importance of her asking a psychiatric provider or primary care provider any questions or problems concerning the psychotropic medications. Review importance of reporting to a psychiatric provider, primary care provider, or other health technical healthcare consultant if she plans to or becomes . Review safety plan and the importance to contact [facility] or [facility] , or go to the nearest emergency room, if ever a danger to yourself/others, or unable to care for yourself. Recommend upon discharge to establish routine medication management treatment with a psychiatric provider, establish routine therapy appointments, and follow-up with a primary care provider. Verify patient understands, accepts, and agrees to the information that has been provided. /[id number]/MODL MTDD
== END 2018-10-16 13:09 | disposition home or self-care (01) | DRG 751 ==
LOC: BBEH 22:00
PROVIDERS: ADMIT Psychiatry & Neurology Psychiatry; ATTEND Psychiatry & Neurology Psychiatry
DX: F33.3 Major depressive disorder, recurrent, severe with psychotic symptoms (principal)